=== PATIENT | male | born 1990 | race Two or more races ===

== ENCOUNTER 2018-10-24 01:44 | Inpatient (IN) | payer OTHER ==
[~2018-10-24] VITALS: Ht 180.3 cm; Wt 84.8 kg
[~2018-10-24 01:44] MED LIST: GLUCOPHAGE XR500 MG
[2018-10-24] MEDS ORDERED: METFORMIN HCL1000 M1 PO (02:18)
--- NOTE | 2018-10-24 02:18 | NUR ---
SE RECIBE PTE ALERTA Y ORIENTADO X3,REFIERE TENER DIFICULTAD RESPIRATORIA ,SE LE EDWARD S/V EL PULSO ACELERADO ,OXIGENANDO 87%,DEDOS DE LAS GIACOMO CIANOTICOS ,SE LE REALIZA EKG SE UBICA EN ASMA UNIT.
--- NOTE | 2018-10-24 02:58 | NUR ---
EVALUA PACIENTE Y ORDENA [place] MEDICO DEL CUAL SE ORIENTA PACIENTE,EL MISMO REFIERE COMPRENDER. SE COLECTAN MUESTRAS DE LABOARTORIOS SHANTI ORDEN MEDICA BAJO MEDIDAS ASEPTICAS,SE ROTULAN Y SON ENVIADAS PARA ANALISIS. SE ADMINISTRAN MEDICAMENTOS SHANTI ORDEN MEDICA BAJO MEDIDAS ASEPTICAS. SE NOTIFICA XRAYS A PERSONAL DE TURNO. SE NOTIFICA ABGS,TERAPIAS,VM A PERSONAL DE TERAPIA RESPIRATORIA. SE CONECTA PACIENTE MONITOR CARDIACO Y OXIMETRIA DE PULSO CONTINUA.
--- NOTE | 2018-10-24 03:30 | NUR ---
CONSULTA PACIENTE CON INTERNISTA .
--- NOTE | 2018-10-24 08:05 | NUR ---
SE RECIBE PTE DEL TURNO ANTERIOR EN K6. PTE MASCULINO DE 28 ANOS, ALERTA Y ORIENTADO X3. PTE CONECTADO A MONITOR CARDIACO Y VENTURY MASK AL 50% PRESENTANDO OXIMETRIA MANUAL AL 97%. PTE CANALIZADO EN BRAZO R+ CON AREA KRIS DE EDEMA RECIBIENDO 0.9% A 200 ML/HR. PTE EN ESPERA DE CONSULTA CON DR. FULTON.
== END 2018-11-05 15:49 | disposition home or self-care (01) | DRG 193 ==
LOC: ER 01:44 → ICU-2 12:37 → SEC-K 12:37 → ICU-2 14:10 → SEC-K 10-28 12:50 → MEDJ 10-28 14:45 → MEDI 10-28 14:45 → MEDJ 11-05 15:49
PROVIDERS: ADMIT Internal Medicine
PROC: 8E0ZXY6 Isolation (ICD-10-PCS; principal; 2018-10-24)
PROC: BB24ZZZ Computerized Tomography (CT Scan) of Bilateral Lungs (ICD-10-PCS; 2018-10-24)
PROC: B246ZZZ Ultrasonography of Right and Left Heart (ICD-10-PCS; 2018-10-24)
PROC: 3E0F7GC Introduction of Other Therapeutic Substance into Respiratory Tract, Via Natural or Artificial Opening (ICD-10-PCS; 2018-10-24)
PROC: 4A033R1 Measurement of Arterial Saturation, Peripheral, Percutaneous Approach (ICD-10-PCS; 2018-10-24)
PROC: 4A12X4Z Monitoring of Cardiac Electrical Activity, External Approach (ICD-10-PCS; 2018-10-28)
DX: J16.8 Pneumonia due to other specified infectious organisms (principal); A41.9 Sepsis, unspecified organism; J81.1 Chronic pulmonary edema; R09.02 Hypoxemia; E11.65 Type 2 diabetes mellitus with hyperglycemia; Z21 Asymptomatic human immunodeficiency virus [HIV] infection status

== ENCOUNTER 2019-01-08 14:52 | Inpatient (IN) | payer OTHER ==
[~2019-01-08] VITALS: Ht 180.3 cm; Wt 181.0 kg
[~2019-01-08 14:52] MED LIST changes: +METFORMIN HCL1000 M1 PO
[2019-01-12] MEDS ORDERED: BACTRIM DS TAB1 EACH PO (09:03)
[2019-01-12] MEDS ORDERED: FLAGYL500MG PO (09:04)
== END 2019-01-12 13:00 | disposition home or self-care (01) | DRG 987 ==
LOC: ER 14:52 → SURH 01-09 07:44
PROVIDERS: ADMIT Surgery
PROC: 3E0T3BZ Introduction of Anesthetic Agent into Peripheral Nerves and Plexi, Percutaneous Approach (ICD-10-PCS; 2019-01-09)
PROC: 0J9B0ZZ Drainage of Perineum Subcutaneous Tissue and Fascia, Open Approach (ICD-10-PCS; principal; 2019-01-09 16:15)
DX: K61.39 Other ischiorectal abscess (principal); A41.9 Sepsis, unspecified organism; B95.2 Enterococcus as the cause of diseases classified elsewhere; Z21 Asymptomatic human immunodeficiency virus [HIV] infection status; E11.65 Type 2 diabetes mellitus with hyperglycemia

== ENCOUNTER 2020-09-17 13:36 | Inpatient (IN) | payer OTHER ==
[~2020-09-17] VITALS: Ht 180.3 cm; Wt 93.9 kg
[~2020-09-17 13:36] MED LIST changes: +BACTRIM DS TAB1 EACH PO; +FLAGYL500MG PO
[2020-09-17] MEDS ORDERED: JENTADUETO 2.51 EACH PO (14:12)
[2020-09-17] MEDS ORDERED: BIKTARVY 50-201 EACH PO (14:13)
[2020-09-19] MEDS ORDERED: CIPRO500 MG PO (12:30)
[2020-09-19] MEDS ORDERED: PROTONIX40 MG PO (12:30)
[2020-09-19] MEDS ORDERED: ULTRACET PO (12:30)
== END 2020-09-19 13:35 | disposition home or self-care (01) | DRG 343 ==
LOC: ER 13:36 → O/R 21:10 → SURH 21:10 → SEC-K 21:10 → O/R 23:47 → SURH 09-18 01:56
PROVIDERS: ADMIT Surgery; ATTEND Surgery
PROC: 0DTJ0ZZ Resection of Appendix, Open Approach (ICD-10-PCS; principal; 2020-09-18)
DX: K35.20 Acute appendicitis with generalized peritonitis, without abscess (principal); N20.0 Calculus of kidney; Z21 Asymptomatic human immunodeficiency virus [HIV] infection status; Z20.822 Contact with and (suspected) exposure to COVID-19

== ENCOUNTER 2021-06-23 11:20 | Emergency (ER) | payer OTHER ==
[~2021-06-23] VITALS: Ht 180.3 cm; Wt 99.8 kg
[~2021-06-23 11:20] MED LIST changes: +BIKTARVY 50-201 EACH PO; +CIPRO500 MG PO; +JENTADUETO 2.51 EACH PO; +PROTONIX40 MG PO; +ULTRACET PO
[2021-06-23] MEDS ORDERED: LANTUS SOL100 UNIT/1 (11:49)
== END 2021-06-23 15:41 | disposition home or self-care (01) ==
LOC: ER 11:20
DX: K52.9 Noninfective gastroenteritis and colitis, unspecified (principal); A05.9 Bacterial foodborne intoxication, unspecified; Z88.0 Allergy status to penicillin